=== PATIENT | male | born 1975 | race African-American/Black ===

== ENCOUNTER → 2017-11-14 | Outpatient (CLI) | payer OTHER ==
--- NOTE | 2017-11-14 16:38 | XCELERA REPORT ---
[address] [id number] Lower Extremity Venous Evaluation Name: MIGEL WALKER Age: 42 yrs Gender: Male : 1975 Patient Status: Outpatient Patient Location: Study Date: 11/14/2017 08:52 AM Procedure: A bilateral duplex scan of the lower extremity veins was performed. The evaluation included responses to compression and other maneuvers with patient in the supine and standing positions to assess venous insufficiency. Reason For Study: ULCER Ordering Physician: LORNA MULLEN Performed By: Arley Damon Right Sided Venous Evaluation Deep venous system evaluatiion shows patent veins with no obstruction or significant reflux identified. Sapheno Femoral junction: no reflux. Femoral vein reflux: no reflux. Greater Saphenous vein, Proximal thigh: reflux: no reflux. Greater Saphenous vein, Distal thigh: reflux: no reflux. Greater Saphenous vein, Proximal below knee: reflux: no reflux. No significant Perforators identified. Left Sided Venous Evaluation Deep venous system evaluation shows patent veins with no obstruction or significant reflux identified. Sapheno Femoral junction: no reflux. Femoral vein reflux no reflux. Greater Saphenous vein, Proximal thigh: reflux: 2 seconds, 10 mm diameter. Greater Saphenous vein, Distal thigh: reflux: 3 seconds.12 mm diameter. Greater Saphenous vein, Mid below knee: reflux:2 second reflux, 10 mm diameter. No significant Perforators identified. Interpretation Summary No duplex evidence of DVT or obstruction in the bilateral lower extremities. Significant reflux in the left lower extremity. The pattern of disease may be amenable to intervention, if clinically indicated. : LORNA MULLEN > Kristofer Friedman
--- NOTE | 2017-11-15 07:55 | XCELERA REPORT ---
[address] [address] Lower Extremity Arterial Evaluation Name: MIGEL WALKER Age: 42 yrs Gender: Male : 1975 Patient Status: Outpatient Patient Location: Study Date: 11/14/2017 08:21 AM Procedure: Ankle brachial indicies performed. A color flow and duplex scan of the lower extremity arteries was performed bilaterally with velocity and waveform anaylsis. Reason For Study: ULCER Ordering Physician: LORNA MULLEN Performed By: Arley Damon Measurements and Calculations Right Left THREAD CHECKER PSV 122.2 132.8 cm/sec Prox PFA PSV -77.1 62.9 cm/sec Prox SFA PSV 87.4 102.5 cm/sec Mid SFA PSV -92.6 -122.6 cm/sec Dist SFA PSV -70.3 -129.9 cm/sec Prox Pop A PSV 55.9 85.0 cm/sec Dist MELODIE PSV -28.6 99.9 cm/sec Dist [employer] PSV 63.8 114.4 cm/sec Devan Pedis PSV -84.3 -42.7 cm/sec Right Side Arterial Evaluation Normal velocity and biphasic waveforms noted from the Common Femoral artery to the infrageniculate vessels. 0-19% stenosis at the Aorto Iliac inflow. Ankle Brachial index is 0.9. Left Side Arterial Evaluation Normal velocity and triphasic waveforms noted in the Common Femoral artery. Biphasic , normal velocity in the Popliteal to the Dorsalis Pedis. Monophasic in the Posterior Tibial artery. 0-19% stenosis at the Femoral artery. With sequential changes Ankle Brachial index is 0.9.. Interpretation Summary Moderate hemodynamically significant lesions in the bilateral lower extremities, on duplex imaging, at rest. Evidence of prior vascular intervention noted. : LORNA MULLEN > Kristofer Friedman
== END ==
LOC: SP 08:01
PROVIDERS: ATTEND Nurse Practitioner
DX: L97.222 Non-pressure chronic ulcer of left calf with fat layer exposed (principal)
CPT/HCPCS: 93925; 93970